=== PATIENT | male | born 1980 | race Caucasian/White ===

== ENCOUNTER 2018-08-18 09:43 | Emergency (ER) | payer OTHER ==
--- NOTE | 2018-08-18 10:52 | Emergency Department Report ---
ED Abdominal Pain HPI - General Chief Complaint: Abdominal Pain Stated Complaint: LEFT FLANK PAIN/NAUSEA Time Seen by Provider: 08/18/18 10:22 Source: patient, RN notes reviewed Mode of arrival: Ambulatory Limitations: No Limitations - History of Present Illness Initial Comments: Dariel is a 37-year-old male who is in custody of the police. He is brought to the emergency room for acute onset of flank pain. He also reports difficulty urinating. He denies blood in the urine. Signs are stable and there is no fever. MD Complaint: flank pain -: Sudden Location: LLQ Consistency: constant Improves With: medication Associated Symptoms: nausea, vomiting - Related Data Previous Rx's Medication Instructions Recorded Last Taken Type Acetaminophen [Pain Relief] 1,000 mg PO Q8H PRN #12 tablet 08/18/18 Unknown Rx Ibuprofen [Motrin] 800 mg PO Q8HR PRN #12 tablet 08/18/18 Unknown Rx Allergies Allergy/AdvReac Type Severity Reaction Status Date / Time No Known Allergies Allergy Verified 08/18/18 10:05 ED Review of Systems ROS: Stated complaint: LEFT FLANK PAIN/NAUSEA Other details as noted in HPI Comment: All other systems reviewed and negative Constitutional: denies: chills, fever Eyes: denies: eye pain ENT: denies: ear pain Respiratory: denies: cough Cardiovascular: denies: dyspnea on exertion Endocrine: denies: excessive sweating Gastrointestinal: as per HPI, abdominal pain, nausea, vomiting Genitourinary: as per HPI, dysuria, frequency. denies: urgency, hematuria, discharge Musculoskeletal: as per HPI, back pain Skin: denies: rash Neurological: denies: headache Psychiatric: denies: anxiety Hematological/Lymphatic: denies: easy bleeding ED Past Medical Hx - Past Medical History Previous Medical History?: No - Surgical History Past Surgical History?: No - Family History Family history: no significant - Social History Smoking Status: Never Smoker - Medications Home Medications: Home Medications Medication Instructions Recorded Confirmed Last Taken Type Acetaminophen [Pain Relief] 1,000 mg PO Q8H PRN #12 tablet 08/18/18 Unknown Rx Ibuprofen [Motrin] 800 mg PO Q8HR PRN #12 tablet 08/18/18 Unknown Rx ED Physical Exam - General Limitations: No Limitations General appearance: alert - Head Head exam: Present: atraumatic - Eye Eye exam: Present: normal appearance, PERRL Pupils: Present: normal accommodation - ENT ENT exam: Present: mucous membranes moist - Neck Neck exam: Present: normal inspection - Respiratory Respiratory exam: Present: normal lung sounds bilaterally - Cardiovascular Cardiovascular Exam: Present: regular rate - GI/Abdominal GI/Abdominal exam: Present: soft, normal bowel sounds. Absent: distended, tenderness, guarding, rebound, rigid, diminished bowel sounds - Rectal Rectal exam: Present: deferred - Extremities Exam Extremities exam: Present: normal inspection, full ROM - Back Exam Back exam: Present: normal inspection, full ROM. Absent: tenderness, CVA tenderness (R), CVA tenderness (L) - Neurological Exam Neurological exam: Present: alert, oriented X3 - Psychiatric Psychiatric exam: Present: normal affect, normal mood - Skin Skin exam: Present: warm, dry ED Course Vital Signs 08/18/18 09:55 Temperature 98.6 F Pulse Rate 82 Respiratory 18 Rate Blood Pressure 126/70 O2 Sat by Pulse 98 Oximetry - Reevaluation(s) Reevaluation #1: 08/18/18 13:06 ON DC PAIN IS IMPROVED NO VOMITING AMBULATORY AND TAKING PO ED Medical Decision Making - Lab Data Result diagrams: 08/18/18 10:59 08/18/18 10:59 - Radiology Data Radiology results: report reviewed, image reviewed - Medical Decision Making CT POS FOR KIDNEY STONE NO HYDRO CR NORMAL MEDICATED WITH NON NARCOTIC PAIN MEDS, ZOFRAN AND 2L NS. ROCEPHIN IV X 1 GIVEN WILL DC IN CUSTODY OF PD Labs 08/18/18 08/18/18 08/18/18 10:06 10:59 10:59 WBC 15.3 H RBC 5.61 H Hgb 16.8 H Hct 48.3 H MCV 86 MCH 30 MCHC 35 H RDW 13.2 Plt Count 207 Sodium 142 Potassium 4.3 Chloride 105.4 Carbon Dioxide 24 Anion Gap 17 BUN 12 Creatinine 0.8 Estimated GFR > 60 BUN/Creatinine Ratio 15 Glucose 108 H Calcium 9.5 Total Bilirubin 0.60 AST 33 ALT 32 Alkaline Phosphatase 64 Total Protein 7.7 Albumin 4.7 Albumin/Globulin Ratio 1.6 Lipase 17 Urine Color Yellow Urine Turbidity Clear Urine pH 6.0 Ur Specific Jenkins 1.018 Urine Protein 30 mg/dl Urine Glucose (UA) Neg Urine Ketones Neg Urine Blood Lg Urine Nitrite Neg Urine Bilirubin Neg Urine Urobilinogen < 2.0 Ur Leukocyte Esterase Neg Urine WBC (Auto) 3.0 Urine RBC (Auto) 145.0 Urine Mucus 1+ - Differential Diagnosis RO K STONE; W OR WITHOUT INFECTION/HYDRONEPHROSIS Critical care attestation.: If time is entered above; I have spent that time in minutes in the direct care of this critically ill patient, excluding procedure time. ED Disposition Clinical Impression: Kidney stone Disposition: - TO HOME OR SELFCARE Is pt being admited?: No Does the pt Need Aspirin: No Condition: Stable Instructions: Kidney Stones (ED) Additional Instructions: DRINK A LOT OF WATER MOTRIN OR TYLENOL FOR PAIN OR FEVER FOLLOW UP WITH PCP/ONE PROVIDED HERE OR FOLLOW UP WITH [facility] YOU SHOULD BE ABLE TO PASS STONE WITHOUT CONSEQUENCE YOU HAVE NO INFECTION AND KIDNEY FUNCTION IS NORMAL. Prescriptions: Acetaminophen [Pain Relief] 1,000 mg PO Q8H PRN #12 tablet PRN Reason: Pain , Severe (7-10) Ibuprofen [Motrin] 800 mg PO Q8HR PRN #12 tablet PRN Reason: Pain , Severe (7-10) Referrals: NATACHA SOLIMAN DO [Primary Care Provider] - 3-5 Days Time of Disposition: 12:48
[2018-08-18 11:11] LABS: Hematocrit 48.3 % (35.5-45.6); Hemoglobin 16.8 gm/dl (11.8-15.2); Mean Corpuscular HGB Conc 35 % (32-34); Mean Corpuscular Volume 86 fl (84-94); Platelet Count 207 K/mm3 (140-440); Red Blood Count 5.61 M/mm3 (3.65-5.03); Red Cell Distribution Width 13.2 % (13.2-15.2)
[2018-08-18 11:14] LABS: Bilirubin,Urine NEG (Negative); Blood,Urine LG (Negative); Color,Urine Yellow (Yellow); Mucus,Urine 1+ /HPF; Urobilinogen,Urine < 2.0 mg/dL (<2.0)
[2018-08-18 11:35] LABS: Alanine Aminotransferase 32 units/L (7-56); Albumin 4.7 g/dL (3.9-5); BUN/Creatinine Ratio 15; Blood Urea Nitrogen 12 mg/dL (9-20); Calcium 9.5 mg/dL (8.4-10.2); Hemolysis Index 11
[2018-08-18] MEDS ORDERED: ZOFRAN IV ONE (11:38)
[2018-08-18] MEDS ORDERED: NACL 0.9% 1000 ML 1,000 ML IV ONE ×2 (11:38→12:46)
[2018-08-18] MEDS ORDERED: TORADOL IV ONE (11:38)
--- NOTE | 2018-08-18 12:45 | Cat Scan Report ---
CT ABDOMEN PELVIS WITHOUT CONTRAST: HISTORY: Flank pain. COMPARISON: none. TECHNIQUE: Helical CT in 1.25mm intervals without IV contrast. Sagittal and coronal reconstructions. FINDINGS: Lung bases: Normal. Liver: Normal. Biliary system: Normal. Pancreas: Normal. Spleen: Normal. Kidneys/ureters/bladder: Punctate bilateral renal stones are identified. An approximately 4.7 mm stone is identified at the left UVJ. There is no significant left hydronephrosis. The bladder is empty. Adrenal glands: Normal. Aorta: Normal. Intestines: Normal. Appendix: Normal. Ascites: None. Adenopathy: None. Musculoskeletal: Normal. IMPRESSION: 4.7 mm calculus at the left UVJ. No significant left hydronephrosis. Punctate bilateral renal calyceal stones.
[2018-08-18] MEDS ORDERED: ROCEPHIN/NS 1 GM/50 ML 1 GM/50 ML BAG IV ONE (13:30)
[2018-08-18 14:27] VITALS: BP 122/70
== END 2018-08-18 14:25 | disposition home or self-care (01) ==
LOC: ED 09:43
DX: N20.0 Calculus of kidney (principal)
CPT/HCPCS: 36415; 74176; 80053; 81001; 83690; 85027; 96361; 96365; 96375; 99284; J0696; J1885; J2405; J7030